=== PATIENT | female | born 1990 | race Caucasian/White ===

== ENCOUNTER → 2024-01-11 13:06 | Outpatient (REF) | payer BC, SELFPAY | LOC: RAD 13:06 | PROVIDERS: ATTENDING PHYSICIAN Obstetrics & Gynecology; FAMILY PHYSICIAN Nurse Practitioner Family | DX: O26.851 Spotting complicating pregnancy, first trimester (principal) | CPT/HCPCS: 76801; 76817 ==

== ENCOUNTER → 2024-02-17 11:34 | Outpatient (REF) | payer BC, SELFPAY | LOC: PNTC 11:34 | PROVIDERS: ATTENDING PHYSICIAN Obstetrics & Gynecology | DX: Z36.0 Encounter for antenatal screening for chromosomal anomalies (principal); Z36.82 Encounter for antenatal screening for nuchal translucency | CPT/HCPCS: 76801; 76813 ==

== ENCOUNTER 2024-08-21 08:46 | Inpatient (IN) | payer BC, SELFPAY ==
[2024-08-21 08:58] VITALS: BP 101/63; BMI 23.3
[2024-08-21 09:22] LABS: Hematocrit 34.6 % (37.0-47.0); Hemoglobin 12.1 g/dL (12.0-16.0); Mean Corpuscular Hgb 31.8 pg (27.0-31.0); Mean Corpuscular Volume 91.1 fL (81.0-99.0); Mean Platelet Volume 10.4 fL (7.4-10.4); Platelet Count 213 10^3/uL (130-400); Red Cell Dist. Width 12.7 % (11.5-14.5); White Blood Cell Count 7.6 10^3/uL (4.8-10.8)
[2024-08-21] MEDS: CLEOCIN 50 IV (09:35)
[2024-08-21] MEDS: BICITRA 30 ML PO (09:35)
[2024-08-21] MEDS: TYLENOL 1000 MG PO (09:51)
[2024-08-21] MEDS: GENTAMICIN 58.85 MG IV (09:51)
[2024-08-21] MEDS: MORPHINE SULFATE 2 MG IV (14:35)
[2024-08-21] MEDS: TORADOL 15 MG IV ×2 (14:39→21:49)
[2024-08-21] MEDS: PERCOCET 5/325 1 TABLET PO (18:45)
[2024-08-22] MEDS: PERCOCET 5/325 1 TABLET PO ×4 (00:19→22:43)
[2024-08-22] MEDS: TORADOL 15 MG IV ×2 (02:53→09:07)
[2024-08-22 04:09] LABS: Hematocrit 31.5 % (37.0-47.0); Hemoglobin 10.7 g/dL (12.0-16.0); Mean Corpuscular Hgb 31.3 pg (27.0-31.0); Mean Corpuscular Volume 92.1 fL (81.0-99.0); Mean Platelet Volume 10.6 fL (7.4-10.4); Platelet Count 215 10^3/uL (130-400); Red Blood Cell Count 3.42 10^6/uL (4.20-5.40); Red Cell Dist. Width 12.7 % (11.5-14.5)
[2024-08-22] MEDS: MYLICON 80 MG PO ×2 (06:10→09:15)
--- NOTE | 2024-08-22 08:10 | W.PN.ANS.POP ---
Anesthesia Post Operative
- Anesthesia Post Op Note
Vital Signs Stable-See Nursing Note: Yes
Airway Patent: Yes
Adequate Pain Control: Yes
Change in Mental Status: No
Current Postoperative Nausea & Vomiting: No
Anesthesia Complications: No
General Anesthetic Recall: No
Unplanned Admission: No
Post Op Hydration Adequate: Yes
[2024-08-22] MEDS: PRENATAL PLUS 1 TABLET PO (09:07)
[2024-08-22] MEDS: PERCOCET 5/325 2 TABLET PO ×2 (10:22→16:45)
[2024-08-22 11:30] LABS: Syphilis/T. pallidum Ab Reflex Negative (Negative)
[2024-08-22] MEDS: SENOKOT-S 1 TABLET PO (20:48)
[2024-08-23] MEDS: PRENATAL PLUS 1 TABLET PO (08:02)
[2024-08-23] MEDS: PERCOCET 5/325 2 TABLET PO ×4 (08:06→21:40)
[2024-08-23] MEDS: SENOKOT-S 1 TABLET PO (08:09)
[2024-08-23] MEDS: MOTRIN 600 MG PO (20:03)
[2024-08-24] MEDS: MOTRIN 600 MG PO (07:42)
[2024-08-24] MEDS: PERCOCET 5/325 1 TABLET PO (07:42)
[2024-08-24] MEDS: PRENATAL PLUS 1 TABLET PO (07:43)
[2024-08-24] MEDS: SENOKOT-S 1 TABLET PO (07:43)
--- NOTE | 2024-08-24 11:59 | W.DS.TRANS ---
DC Summary - [facility] [facility]
-
Discharge Instructions:
Discharge Diagnosis/Procedures R- LTCS
Diet No restrictions
Activity No strenuous activity
Driving Restrictions No driving for 2 weeks
Bathing Restrictions OK to Shower
Blood Work none
Others Tests none
Instructions:
Stand-Alone Forms: LDRP Delivery
Changes to Home Medications: No
Discharge Medications:
DC Medications w/original date entered in [employer]
albuterol sulfate 90 mcg/actuation aerosol inhaler (Ventolin HFA) 2 puff inhalation 6XD PRN asthma 04/21/22
prenat.vits,maria elena,[id number]-[id number] 1 tab PO DAILY 08/21/24
ibuprofen 600 mg tablet 600 mg PO Q6HPRN PRN cramps #90 tabs 08/24/24
oxycodone-acetaminophen 5 mg-325 mg tablet 1 tab PO Q4HPRN PRN moderate pain #12 tabs 08/24/24
Home Medication Changes
Pending Results: No
Total time spent discharging patient (in min): 20
== END 2024-08-24 13:35 | disposition home or self-care (01) | DRG 787 ==
LOC: LDRP 08:46
PROVIDERS: ADMITTING PHYSICIAN Obstetrics & Gynecology; FAMILY PHYSICIAN Nurse Practitioner Family
PROC: 10D00Z1 Extraction of Products of Conception, Low, Open Approach (ICD-10-PCS; 2024-08-21)
DX: O34.211 Maternal care for low transverse scar from previous cesarean delivery (principal); O98.42 Viral hepatitis complicating childbirth; O99.344 Other mental disorders complicating childbirth; O99.52 Diseases of the respiratory system complicating childbirth; J45.909 Unspecified asthma, uncomplicated; F41.9 Anxiety disorder, unspecified; F32.A Depression, unspecified; B19.20 Unspecified viral hepatitis C without hepatic coma; Z37.0 Single live birth; Z3A.39 39 weeks gestation of pregnancy; Z88.0 Allergy status to penicillin; Z86.19 Personal history of other infectious and parasitic diseases
CPT/HCPCS: 36415; 85027; 86780; 86850; 86900; 86901